=== PATIENT | male | born 1985 | race Caucasian/White ===

== ENCOUNTER 2016-07-03 08:16 | Emergency (ER) | payer OTHER, BC ==
[2016-07-03 08:32] VITALS: RESP 16
--- NOTE | 2016-07-03 08:44 | UCPHY ---
H & P Time Seen by Provider: 07/03/16 08:43 Patient Type: New HPI/ROS: Chief complaint. Finger injury HPI. Patient is a 31-year-old male with injury 4 days ago to fingers of the right hand 2. And 3. Sustained laceration on the flexor side. Continues to have pain with movement. The patient was helping a group move a large concrete sink when the underlying structure collapsed and the patient sustained crush injury to the 2nd and 3rd fingers of his right hand as the sink drop down into its frame. No and other injuries. Patient is right handed. Patient has been using soap, antibiotic ointment, Band-Aids for the lacerations on his fingers. No previous injury to this hand ROS Constitutional. no fever/chills, no weakness Eyes. no problems with vision ENT. no sore throat, no nasal drainage Cardiovascular. no chest pain Respiratory. no shortness of breath, no cough Abdominal. no abdominal pain, no nausea/vomiting, no diarrhea . no problems urinating MS. Pain and slight swelling to fingers 2 and 3 right hand Skin. Laceration on the flexor side of fingers 2 and 3 right hand Lymph. no swollen glands Neuro. no headache, no dizziness, no difficulty walking or with speech Past Medical/Surgical History: Healthy Social History: , nonsmoker, no alcohol Smoking Status: Former smoker Physical Exam: General Appearance: Alert pleasant well-developed male mild distress vital signs are stable Eyes: Pupils equal and round no pallor or injection. ENT, Mouth: Mucous membranes are moist. Respiratory: There are no retractions, lungs are clear to auscultation. Cardiovascular: Regular rate and rhythm. Gastrointestinal: Abdomen is soft and nontender, no masses, bowel sounds normal. Neurological: Awake and alert, sensory and motor exams grossly normal. Skin: 1.5 cm lacerations that are superficial on the flexor surface under the PIP joints both fingers 2 and 3. No evidence for retained foreign body or infection Musculoskeletal: Neck is supple nontender. Extremities pain and swelling to fingers 2 and 3 right hand. No obvious deformity. Good movement. Sensation normal. Psychiatric: Patient is oriented X 3, there is no agitation. Constitutional: Initial Vital Signs Temperature (C) 36.4 C 07/03/16 08:29 Heart Rate 59 L 07/03/16 08:29 Respiratory Rate 16 07/03/16 08:29 Blood Pressure 128/84 H 07/03/16 08:29 O2 Sat (%) 99 07/03/16 08:29 O2 Delivery Mode Room Air Allergies/Adverse Reactions: No Known Allergies Allergy (Verified 07/03/16 08:32) Home Medications: Medication Instructions Recorded NK [No Known Home Meds] 07/03/16 Medical Decision Making - Diagnostics Imaging: Imaging Impressions Hand X-Ray 07/03/16 08:49 Impression: There is no acute fracture identified. X-rays reviewed by me and discussed with Dr. Lr. Negative for acute fracture dislocation ED Course/Re-evaluation: Re-evaluation at 9:20 a.m.. Patient is stable. The patient, his and I discussed imaging study results, treatment plan including criteria return importance of further evaluation. They expressed understanding and agreement Differential Diagnosis: I considered fracture and dislocation. I believe this is contusion. No evidence for fracture dislocation on x-ray. No evidence for foreign body. No evidence of cellulitis or infection Departure - Departure Disposition: Home, Routine, Self-Care Clinical Impression: Finger contusion Qualifiers: Encounter type: initial encounter Finger: middle finger Damage to nail status: with damage Laterality: right Qualified Code(s): S60.131A - Contusion of right middle finger with damage to nail, initial encounter Condition: Good Instructions: Contusion in Adults (ED) Additional Instructions: Activity as tolerated. Continue keeping the cuts clean using antibiotic ointment and bandages while at work. Return for signs of infection including increased pain redness and swelling. Ibuprofen 600 mg every 6 hours as needed for discomfort. Referrals: NONE *PRIMARY CARE P,. [Primary Care Provider] - As per Instructions William Blanca, [Doctor of Osteopathy] - 3-4 days, if not improved - PQRS PQRS Measurement: 134: Depression screening and followup, PRIME MD-PHQ2 (12 years and older) Over the last 2 weeks, how often have you been bothered by any of the following problems? 1. Feeling down, depressed, or hopeless? 2. Little interest or pleasure in doing things? Patient answered no to both 1 and 2 130: Documentation of medications. Reviewed all patient medications, doses, route and frequency. 226: Do you smoke? No.
[2016-07-03 09:55] VITALS: BP 126/81; PULSE 61; TEMP 97.9; O2SAT 96
== END 2016-07-03 09:51 | disposition home or self-care (01) ==
LOC: CED 08:16
DX: S60.021A Contusion of right index finger without damage to nail, initial encounter (principal); S60.031A Contusion of right middle finger without damage to nail, initial encounter; W22.8XXA Striking against or struck by other objects, initial encounter; Y92.010 Kitchen of single-family (private) house as the place of occurrence of the external cause
CPT/HCPCS: 73130-PO; G0463-PO